=== PATIENT | female | born 1945 | race Caucasian/White ===

== ENCOUNTER 2020-06-17 13:01 | Inpatient (IN) | payer MEDICARE, BC ==
[~2020-06-17] VITALS: Ht 162.6 cm; Wt 63.0 kg
[2020-06-17] VITALS (9 sets, daily range): BP systolic 104–131; BP diastolic 46–67; BMI 23.9
[2020-06-17 13:36] LABS: ALBUMIN 3.8 g/dL (3.4-5.0); ANION GAP 26.5 mmol/L (8-16); BILIRUBIN - TOTAL 0.55 mg/dL (0.2-1.3); CALCIUM 9.6 mg/dL (8.5-10.1); CARBON DIOXIDE 15.1 mmol/L (21.0-32.0); CREATININE - SERUM 2.3 mg/dL (0.6-1.3); MAGNESIUM - SERUM 2.2 mg/dL (1.8-2.4); POTASSIUM - SERUM 4.6 mmol/L (3.5-5.1)
[2020-06-17 13:38] LABS: BASOPHILS 0.3 % (0-2); EOSINOPHILS 1.7 % (0-7); HEMATOCRIT 40.8 % (36.0-48.0); HEMOGLOBIN 13.2 g/dL (12-16); IMMATURE GRANULOCYTES 0.2 % (0-5); LYMPHOCYTE ABS# 1.84 10x3/uL (1.18-3.74); LYMPHOCYTES 19.7 % (15-50); MCH 30.7 pg (26.0-34.0); MCHC 32.4 g/dL (31.0-37.0); MCV 94.9 fL (80.0-100.0); MEAN PLATELET VOLUME 11.7 fL (7.4-10.4); MONOCYTES 3.9 % (2-11); NEUTROPHIL ABS# 6.91 10x3/uL (1.56-6.13); NEUTROPHILS 74.2 % (40-80); PLATELET COUNT 357 10x3/uL (130-400); RDW 13.1 % (11.5-14.5); WBC 9.3 10x3/uL (4.8-10.8)
--- NOTE | 2020-06-17 14:10 | NUR ---
RECEIVED PT INTO THIS NURSE'S CARE
--- NOTE | 2020-06-17 14:10 | NUR ---
BLOOD DRAWN AND SENT TO THE LAB
--- NOTE | 2020-06-17 16:40 | NUR ---
FSBS 221. INSULIN INFUSING AT 9.5 ML/H
--- NOTE | 2020-06-17 16:49 | NUR ---
INSULIN DRIP CHANGED PER INSULIN FLOW SHEET TO 4.83 UNIT/H OR 4.83 ML/H
[2020-06-17 17:28] LABS: BILIRUBIN NEGATIVE (NEGATIVE); KETONE SMALL mg/dL (NEGATIVE); NITRITE NEGATIVE (NEGATIVE); UROBILINOGEN NORMAL mg/dL (< 2)
[2020-06-17] MEDS ORDERED: ACETAMINOPHEN500 M1 PO (18:22)
[2020-06-17] MEDS ORDERED: BRILINTA90 MG PO (18:22)
[2020-06-17] MEDS ORDERED: LASIX40 MG PO (18:23)
[2020-06-17] MEDS ORDERED: HUMALOG 30100 UNITS/ SC ×3 (18:27→18:30)
[2020-06-17] MEDS ORDERED: ISOSORBIDE MONO30 M1 PO (18:30)
[2020-06-17] MEDS ORDERED: LANTUS INS100 UNITS/ SC (18:31)
[2020-06-17] MEDS ORDERED: COZAAR25 MG PO (18:32)
[2020-06-17] MEDS ORDERED: LISINOPRIL10 MG PO (18:32)
[2020-06-17] MEDS ORDERED: METOPROLOL TART50 MG PO (18:33)
[2020-06-17] MEDS ORDERED: OMEPRAZOLE40 MG PO (18:37)
[2020-06-17] MEDS ORDERED: ALDACTONE25 MG PO (18:38)
[2020-06-17] MEDS ORDERED: CRESTOR20 MG PO (18:38)
[2020-06-17] MEDS ORDERED: TOUJEO SOL300 UNIT/1 SC (18:39)
[2020-06-17] MEDS ORDERED: K-DUR20 MEQ PO (18:39)
[2020-06-17] MEDS ORDERED: SALON PAS MISC (18:41)
--- NOTE | 2020-06-17 19:22 | NUR ---
NS 100 ML/H INFUSING WITH 950 ML REMAINING TO BE INFUSED UPON TRANSFER TO ICU. HUMULIN INFUSING AT 4.83 UNIT/H ON TRANSFER TO ICU
[2020-06-17 20:26] LABS: CALCIUM 8.4 mg/dL (8.5-10.1); CREATININE - SERUM 1.8 mg/dL (0.6-1.3); MAGNESIUM - SERUM 1.9 mg/dL (1.8-2.4)
[2020-06-17 20:28] LABS: ANION GAP 18.7 mmol/L (8-16); POTASSIUM - SERUM 3.7 mmol/L (3.5-5.1)
[2020-06-18] VITALS (17 sets, daily range): BP systolic 94–136; BP diastolic 42–68; Ht 162.6 cm; Wt 63.0 kg
[2020-06-18 01:17] LABS: ANION GAP 16.5 mmol/L (8-16); CARBON DIOXIDE 21.3 mmol/L (21.0-32.0); CREATININE - SERUM 1.7 mg/dL (0.6-1.3); POTASSIUM - SERUM 3.8 mmol/L (3.5-5.1)
[2020-06-18 04:36] LABS: BASOPHILS 0.3 % (0-2); EOSINOPHILS 3.7 % (0-7); HEMATOCRIT 32.7 % (36.0-48.0); HEMOGLOBIN 10.8 g/dL (12-16); IMMATURE GRANULOCYTES 0.1 % (0-5); LYMPHOCYTE ABS# 2.99 10x3/uL (1.18-3.74); LYMPHOCYTES 42.4 % (15-50); MCH 30.2 pg (26.0-34.0); MEAN PLATELET VOLUME 10.7 fL (7.4-10.4); MONOCYTES 10.9 % (2-11); NEUTROPHIL ABS# 3.01 10x3/uL (1.56-6.13); NEUTROPHILS 42.6 % (40-80); RBC 3.58 10x6/uL (4.00-5.40); WBC 7.1 10x3/uL (4.8-10.8)
[2020-06-18 04:41] LABS: MCV 91.3 fL (80.0-100.0); PLATELET COUNT 261 10x3/uL (130-400)
[2020-06-18 05:15] LABS: ANION GAP 16.1 mmol/L (8-16); BILIRUBIN - TOTAL 0.26 mg/dL (0.2-1.3); CALCIUM 8.1 mg/dL (8.5-10.1); CARBON DIOXIDE 19.8 mmol/L (21.0-32.0); CREATININE - SERUM 1.6 mg/dL (0.6-1.3); MAGNESIUM - SERUM 1.8 mg/dL (1.8-2.4); PHOSPHOROUS 2.8 mg/dL (2.5-4.9); POTASSIUM - SERUM 3.9 mmol/L (3.5-5.1); PROTEIN - SERUM 6.1 g/dL (6.4-8.2)
[2020-06-18 05:20] LABS: ALBUMIN 2.7 g/dL (3.4-5.0)
--- NOTE | 2020-06-18 06:29 | NUR ---
Patient did well during the night. Labs pertaining to her DKA status have improved significantly. Rate is currently at 0.78 per protocol. Patient did get slightly confused on one occasion during the night and cannot tolerate external catheter. Patient has been successful with bedpan.
--- NOTE | 2020-06-18 06:34 | NUR ---
Updated YOVANNY Arreaga through out the night regarding labs.
[2020-06-18 09:33] LABS: MAGNESIUM - SERUM 1.7 mg/dL (1.8-2.4); THYROID STIMULATING HORMONE 0.59 uIU/mL (0.36-3.74)
[2020-06-18 10:05] LABS: ANION GAP 16.6 mmol/L (8-16); CALCIUM 8.1 mg/dL (8.5-10.1); CREATININE - SERUM 1.6 mg/dL (0.6-1.3); POTASSIUM - SERUM 3.6 mmol/L (3.5-5.1)
--- NOTE | 2020-06-18 10:14 | NUR ---
DR. HUFF ROUNDS AND WE DISCUSS GAP STILL SLIGHTLY ELEVATED. WANTS ME TO CALL WITH 1200 BMP AND WE WILL DISCUSS HOW KIRLIL S/Devendra.
--- NOTE | 2020-06-18 10:28 | NUR ---
DR. HUFF NOTIFIED MED REC INCOMPLETE. ORDERS VERBALS FOR MOST IMPORTANT MEDS.
[2020-06-18 12:54] LABS: ANION GAP 13.7 mmol/L (8-16); CALCIUM 8.6 mg/dL (8.5-10.1); CARBON DIOXIDE 22.6 mmol/L (21.0-32.0); CREATININE - SERUM 1.5 mg/dL (0.6-1.3); MAGNESIUM - SERUM 2.7 mg/dL (1.8-2.4); POTASSIUM - SERUM 3.3 mmol/L (3.5-5.1)
[2020-06-18 16:54] LABS: ANION GAP 15.6 mmol/L (8-16); CALCIUM 8.3 mg/dL (8.5-10.1); CARBON DIOXIDE 21.5 mmol/L (21.0-32.0); CREATININE - SERUM 1.5 mg/dL (0.6-1.3)
[2020-06-18 16:56] LABS: POTASSIUM - SERUM 4.1 mmol/L (3.5-5.1)
--- NOTE | 2020-06-18 17:53 | NUR ---
REPORT GIVEN TO DARÍO ANDRADE.
--- NOTE | 2020-06-18 18:05 | NUR ---
DARÍO VANEGAS, GIVEN REPORT.
[2020-06-18 20:40] LABS: ANION GAP 18.9 mmol/L (8-16); CALCIUM 8.6 mg/dL (8.5-10.1); CARBON DIOXIDE 17.7 mmol/L (21.0-32.0); CREATININE - SERUM 1.6 mg/dL (0.6-1.3); POTASSIUM - SERUM 4.6 mmol/L (3.5-5.1)
--- NOTE | 2020-06-18 22:00 | NUR ---
This nurse in to see pt and she has ripped IV out of Lt hand. Refuses to have replaced tonight. Charge nurse notified. Will attempt replacement in AM.
[2020-06-19] VITALS: BP 111/40
[2020-06-19 04:00] VITALS: BP 111/37
[2020-06-19 06:52] LABS: BASOPHILS 0.3 % (0-2); EOSINOPHILS 3.9 % (0-7); HEMATOCRIT 33.7 % (36.0-48.0); IMMATURE GRANULOCYTES 0.3 % (0-5); LYMPHOCYTE ABS# 2.28 10x3/uL (1.18-3.74); LYMPHOCYTES 34.1 % (15-50); MCH 30.6 pg (26.0-34.0); MCHC 32.6 g/dL (31.0-37.0); MEAN PLATELET VOLUME 11.3 fL (7.4-10.4); MONOCYTES 10.9 % (2-11); NEUTROPHIL ABS# 3.38 10x3/uL (1.56-6.13); NEUTROPHILS 50.5 % (40-80); PLATELET COUNT 259 10x3/uL (130-400); RDW 13.5 % (11.5-14.5); WBC 6.7 10x3/uL (4.8-10.8)
[2020-06-19 06:54] LABS: MCV 93.6 fL (80.0-100.0)
[2020-06-19 07:26] LABS: ALBUMIN 2.8 g/dL (3.4-5.0); ANION GAP 17.3 mmol/L (8-16); BILIRUBIN - TOTAL 0.23 mg/dL (0.2-1.3); CALCIUM 8.9 mg/dL (8.5-10.1); CARBON DIOXIDE 18.9 mmol/L (21.0-32.0); CREATININE - SERUM 1.2 mg/dL (0.6-1.3); MAGNESIUM - SERUM 2.3 mg/dL (1.8-2.4); PHOSPHOROUS 3.1 mg/dL (2.5-4.9); POTASSIUM - SERUM 4.2 mmol/L (3.5-5.1); PROTEIN - SERUM 6.1 g/dL (6.4-8.2)
--- NOTE | 2020-06-19 07:30 | NUR ---
PT CL IN REACH. NO NEEDS AT THIS TIME. AWAKE, ALERT, AND ORIENTED DURING BEDSIDE REPORT. STATES SHE IS A LITTLE HIGH STRUNG AND EMOTIONAL AT THE MOMENT BECAUSE THE IV MACHINE ALARMING OCCLUDED BEFORE HER ARRIVAL TO THIS FLOOR. I STATED I UNDERSTAND HER NEEDING SOME PEACE AND QUIET WITHOUT AN IV OVERNIGHT.
--- NOTE | 2020-06-19 07:39 | NUR ---
PT DID ALLOW THIS NURSE TO PLACE A NEW IV THIS AM TO LFA. 20G WITH SUCCESSFUL FIRST STICK.
[2020-06-19 08:37] VITALS: BP 117/52
--- NOTE | 2020-06-19 11:00 | NUR ---
CHANGED POSITION OF BEDSIDE TABLE SO IV POLE CAN BE BETWEEN BATHROOM AND BED FOR EASIER ACCESS TO THE BATHROOM. PT IS STEADY ON HER FEET. REQUESTED AND RECEIVED BLUE NON SKID SOCKS TO KEEP HER FEET WARM AND SHE CAME TO HOSPITAL WEARING SLIPPERS. CL IN REACH. NO FURTHER NEEDS AT THIS TIME. WCTM
--- NOTE | 2020-06-19 12:35 | NUR ---
Nutrition follow-up: Visited with pt during rounds. Pts question re: diabetic diet answered RDN provided pt with printed diet information. Pt needs outpatient diabetic diet education after discharge to continue reinforcement of information. RDN will continue to discuss diabetic diet with pt during hospital stay. Follow-up: 06/22/20
[2020-06-19 12:52] VITALS: BP 123/54
--- NOTE | 2020-06-19 15:31 | NUR ---
IN ROOM. AC TURNED OFF REQUESTED. PT USING BATHROOM. NO NEEDS AT THIS TIME. WCMINAL
[2020-06-19 17:31] VITALS: BP 127/51
--- NOTE | 2020-06-20 05:32 | NUR ---
Pt has been resting on and off in bed. Does not wear SCD's and has been c/o knee pain. Pt refused Tylenol and we did discuss alternative pain relieving factors. Pt was given a warm blanket that was effective for pain. Pt up and down in room per self but, when staff near will request to be "tucked in" and pampered a little. Pt behavior does indicate the need for a little more TLC and she did verbalize being scared. Therapeutic communication regarding same and pt tucked in.
[2020-06-20 05:43] LABS: BASOPHILS 0.5 % (0-2); EOSINOPHILS 3.2 % (0-7); HEMATOCRIT 31.1 % (36.0-48.0); HEMOGLOBIN 10.1 g/dL (12-16); IMMATURE GRANULOCYTES 0.2 % (0-5); LYMPHOCYTE ABS# 2.43 10x3/uL (1.18-3.74); LYMPHOCYTES 38.6 % (15-50); MCH 30.4 pg (26.0-34.0); MCHC 32.5 g/dL (31.0-37.0); MCV 93.7 fL (80.0-100.0); MEAN PLATELET VOLUME 10.9 fL (7.4-10.4); MONOCYTES 9.2 % (2-11); NEUTROPHIL ABS# 3.04 10x3/uL (1.56-6.13); NEUTROPHILS 48.3 % (40-80); PLATELET COUNT 230 10x3/uL (130-400); RBC 3.32 10x6/uL (4.00-5.40); RDW 13.8 % (11.5-14.5); WBC 6.3 10x3/uL (4.8-10.8)
[2020-06-20 06:01] LABS: ALBUMIN 2.6 g/dL (3.4-5.0); BILIRUBIN - TOTAL 0.27 mg/dL (0.2-1.3); CALCIUM 8.2 mg/dL (8.5-10.1); CREATININE - SERUM 1.1 mg/dL (0.6-1.3); PHOSPHOROUS 2.9 mg/dL (2.5-4.9); PROTEIN - SERUM 5.6 g/dL (6.4-8.2)
[2020-06-20 06:02] LABS: ANION GAP 15.5 mmol/L (8-16); POTASSIUM - SERUM 3.5 mmol/L (3.5-5.1)
--- NOTE | 2020-06-20 06:53 | NUR ---
Pt had reported BG of 60 this AM with labs. Given 80 ml of [place] juice, diabetic shorbread cookies, Peanut butter and grahm crackers. Asymptomatic for hypoglycemia.
[2020-06-20 08:20] VITALS: BP 130/60
[2020-06-20] MEDS ORDERED: LANTUS SOL100 UNIT/2 SC (11:48)
[2020-06-20 12:00] VITALS: BP 106/46
--- NOTE | 2020-06-20 13:15 | NUR ---
IV DISCONTINUED AND VERBALIZED UNDERSTANDING OF DISCHARGE INSTRUCTIONS. STABLE AT TIME OF DISCHARGE UNDER CARE OF .
--- NOTE | 2020-06-20 19:01 | MORECARE ---
CASE MANAGEMENT DISCHARGE SUMMARY PATIENT: NOÉ PINTO UNIT: [id number] ADM DATE: 06/17/20 AGE: 74 : 43 SEX: F ROOM/BED: D.2211 AUTHOR: JUDI CHILEL PHYSICIAN: REFERRING PHYSICIAN: JACKELINE DOWLING MD DATE OF SERVICE: 06/20/20 Case Management Discharge Planning Summary DCP REVIEW SUMMARY ANTICIPATED D/C DATE: 06/20/2020 EXPECTED LOS : 3 CASE STATUS: DCP Initiated INITIAL REVIEW: 06/17/2020 INITIAL REVIEWER: Bertin Freed FINAL DISCHARGE DISPOSITION: : FINAL REVIEWER: FINAL REVIEW DATE: DCP Focus Questions & Answers DCP Evaluation QUESTION: ANSWER Patient gives permission to discuss discharge plans with: (name, relationship and number) : spouse, Esau Pinto, Patient's ability to cope with chronic illness : d. No chronic illness Patient's current cognitive status: : *Oriented to person, place, situation, time and present Family / Caregiver's ability to cope with chronic illness: : a. Adequate (ability to meet patient's medical needs, ensures patient attends medical appts.) Patient and/or caregiver agree upon recommended discharge plan? : Yes Physical Status: : Independent with ADL's Family / Caregiver's ability to cope with chronic illness: : a. Adequate (ability to meet patient's medical needs, ensures patient attends medical appts.) Functional screen assessment: : Basic needs can adequately be met by self Does the patient have the ability to pay for or attain post discharge needs / services? : Yes Living Arrangements: : Home with Spouse/Significant Other Is there a likelihood that the patient will require additional services to return to the preadmission environment? : No Equipment needed for post hospitalization: : None Baseline cognitive status: : *Oriented to person, place, situation, time and present Patient with capacity for self-care or can be cared for in same environment as prior to hospitalization? : Yes Physical environment modification needed / anticipated for discharge: : No Medication Management: : Patient states can afford medications Medication Management: : Patient states can read and understand medication labels Pharmacy name(s): : [facility] in [place] Does Patient have transportation to get home and to follow-up medical appointments when discharged from the hospital? : Yes Would patient like to participate in any Care Coordination programs (if applicable): : Not applicable Does the patient have electricity at home? : Yes Does the patient have running water in their house? : Yes Equipment in use: : Shower Chair Mental health screen: : No mental health history DCP Re-evaluation QUESTION: ANSWER Would patient like to participate in any Care Coordination programs (if applicable): : Not applicable PATIENT: NOÉ PINTO ENCOUNTER: [id number] MEDICAL RECORD#: [id number] ADMISSION DATE: 06/17/2020 DISCHARGE DATE: 06/20/2020 ATTENDING MD: JACKELINE SPAIN : 1946- AGE: 74 MARITAL STATUS: M DC PLAN ID: [id number] FACILITY: [facility] PRINTED ON: 06/20/20 19:01 CT All edits/amendments must be made on the electronic document DICTATION DATE: 06/20/201900 ELECTRICAL CONTINUITY TESTER: LIZZETTE 06/20/201900 RPT#: [id number] DC DATE:06/20/20 STATUS: DIS IN [facility] [address] [place] [address] END OF REPORT
--- NOTE | 2020-06-20 19:12 | MORECARE ---
CASE MANAGEMENT DISCHARGE SUMMARY PATIENT: NOÉ PINTO UNIT: [id number] ADM DATE: 06/17/20 AGE: 74 : 43 SEX: F ROOM/BED: D.2211 AUTHOR: JUDI CHILEL PHYSICIAN: REFERRING PHYSICIAN: JACKELINE DOWLING MD DATE OF SERVICE: 06/20/20 Case Management Discharge Planning Summary COMMENTS ENTERED DATE: 06/20/20 19:01 CT COMMENT TYPE: Discharge Planning REVIEWER: Bertin Freed CM met with patient to complete DC plan and to evaluate needs. Patient lives independently with her spouse, Esau Pinto, . Patient stated that her home is safe and has electricity and running water. Patient stated that the home has 1 step to enter and she is able to manage the step without difficulty. Patient stated that she has no problems paying for medications and she fills her medications at [facility] in [place]. Patient stated that her primary care physician is Dr. Carroll. At discharge, the patient plans to return home and feels this is a safe discharge. CM discussed availability of home health, rehab services, and medical equipment. Patient declined SNF, IPR, and DME. Patient would like HHS services, with [facility]. JAIME signed and placed in chart. CM spoke with Joyce with intake at [facility]. The patient is currently enrolled in outpatient cardiac rehab 3 times a week and does not qualify as homebound for home health services. Patient stated she has a shower chair. Patient voiced no other needs at this time and is satisfied with DC plan. Transportation provider at discharge will be with her , Esau. DC IMM delivered, explained, signed by the patient, and placed in chart. Signed form also left with the patient. CM will continue to follow and will assist as needed with dc plans/needs. DCP REVIEW SUMMARY ANTICIPATED D/C DATE: 06/20/2020 EXPECTED LOS : 3 CASE STATUS: DCP Initiated INITIAL REVIEW: 06/17/2020 INITIAL REVIEWER: Bertin Freed FINAL DISCHARGE DISPOSITION: : FINAL REVIEWER: FINAL REVIEW DATE: DCP Focus Questions & Answers DCP Evaluation QUESTION: ANSWER Patient gives permission to discuss discharge plans with: (name, relationship and number) : spouse, Esau Pinto, Patient's ability to cope with chronic illness : d. No chronic illness Patient's current cognitive status: : *Oriented to person, place, situation, time and present Family / Caregiver's ability to cope with chronic illness: : a. Adequate (ability to meet patient's medical needs, ensures patient attends medical appts.) Patient and/or caregiver agree upon recommended discharge plan? : Yes Physical Status: : Independent with ADL's Family / Caregiver's ability to cope with chronic illness: : a. Adequate (ability to meet patient's medical needs, ensures patient attends medical appts.) Functional screen assessment: : Basic needs can adequately be met by self Does the patient have the ability to pay for or attain post discharge needs / services? : Yes Living Arrangements: : Home with Spouse/Significant Other Is there a likelihood that the patient will require additional services to return to the preadmission environment? : No Equipment needed for post hospitalization: : None Baseline cognitive status: : *Oriented to person, place, situation, time and present Patient with capacity for self-care or can be cared for in same environment as prior to hospitalization? : Yes Physical environment modification needed / anticipated for discharge: : No Medication Management: : Patient states can afford medications Medication Management: : Patient states can read and understand medication labels Pharmacy name(s): : [facility] in [place] Does Patient have transportation to get home and to follow-up medical appointments when discharged from the hospital? : Yes Would patient like to participate in any Care Coordination programs (if applicable): : Not applicable Does the patient have electricity at home? : Yes Does the patient have running water in their house? : Yes Equipment in use: : Shower Chair Mental health screen: : No mental health history DCP Re-evaluation QUESTION: ANSWER Would patient like to participate in any Care Coordination programs (if applicable): : Not applicable PATIENT: NOÉ PINTO ENCOUNTER: [id number] MEDICAL RECORD#: [id number] ADMISSION DATE: 06/17/2020 DISCHARGE DATE: 06/20/2020 ATTENDING MD: JACKELINE SPAIN : 1946-Dez AGE: 74 MARITAL STATUS: M DC PLAN ID: [id number] FACILITY: [facility] PRINTED ON: 06/20/20 19:11 CT All edits/amendments must be made on the electronic document DICTATION DATE: 06/20/201910 MANIFOLD OPERATOR: DM 06/20/201910 RPT#: [id number] DC DATE:06/20/20 STATUS: DIS IN [facility] [address] [place] [address] END OF REPORT
--- NOTE | 2020-06-22 11:27 | MORECARE ---
CASE MANAGEMENT DISCHARGE SUMMARY PATIENT: NOÉ PINTO UNIT: [id number] ADM DATE: 06/17/20 AGE: 74 : 43 SEX: F ROOM/BED: D.2211 AUTHOR: JUDI CHILEL PHYSICIAN: REFERRING PHYSICIAN: JACKELINE DOWLING MD DATE OF SERVICE: 06/22/20 Case Management Discharge Planning Summary COMMENTS ENTERED DATE: 06/20/20 19:01 CT COMMENT TYPE: Discharge Planning REVIEWER: Bertin Freed CM met with patient to complete DC plan and to evaluate needs. Patient lives independently with her spouse, Esau Pinto, . Patient stated that her home is safe and has electricity and running water. Patient stated that the home has 1 step to enter and she is able to manage the step without difficulty. Patient stated that she has no problems paying for medications and she fills her medications at [facility] in [place]. Patient stated that her primary care physician is Dr. Carroll. At discharge, the patient plans to return home and feels this is a safe discharge. CM discussed availability of home health, rehab services, and medical equipment. Patient declined SNF, IPR, and DME. Patient would like HHS services, with [facility]. JAIME signed and placed in chart. CM spoke with Joyce with intake at [facility]. The patient is currently enrolled in outpatient cardiac rehab 3 times a week and does not qualify as homebound for home health services. Patient stated she has a shower chair. Patient voiced no other needs at this time and is satisfied with DC plan. Transportation provider at discharge will be with her , Esau. DC IMM delivered, explained, signed by the patient, and placed in chart. Signed form also left with the patient. CM will continue to follow and will assist as needed with dc plans/needs. DCP REVIEW SUMMARY ANTICIPATED D/C DATE: 06/20/2020 EXPECTED LOS : 3 CASE STATUS: DCP Initiated INITIAL REVIEW: 06/17/2020 INITIAL REVIEWER: Bertin Freed FINAL DISCHARGE DISPOSITION: : FINAL REVIEWER: FINAL REVIEW DATE: DCP Focus Questions & Answers DCP Evaluation QUESTION: ANSWER Patient and/or caregiver agree upon recommended discharge plan? : Yes Patient's current cognitive status: : *Oriented to person, place, situation, time and present Patient's ability to cope with chronic illness : d. No chronic illness Patient gives permission to discuss discharge plans with: (name, relationship and number) : spouse, Esau Pinto, Family / Caregiver's ability to cope with chronic illness: : a. Adequate (ability to meet patient's medical needs, ensures patient attends medical appts.) Does the patient have the ability to pay for or attain post discharge needs / services? : Yes Functional screen assessment: : Basic needs can adequately be met by self Family / Caregiver's ability to cope with chronic illness: : a. Adequate (ability to meet patient's medical needs, ensures patient attends medical appts.) Physical Status: : Independent with ADL's Equipment needed for post hospitalization: : None Is there a likelihood that the patient will require additional services to return to the preadmission environment? : No Living Arrangements: : Home with Spouse/Significant Other Patient with capacity for self-care or can be cared for in same environment as prior to hospitalization? : Yes Baseline cognitive status: : *Oriented to person, place, situation, time and present Physical environment modification needed / anticipated for discharge: : No Medication Management: : Patient states can afford medications Medication Management: : Patient states can read and understand medication labels Pharmacy name(s): : [facility] in [place] Does Patient have transportation to get home and to follow-up medical appointments when discharged from the hospital? : Yes Would patient like to participate in any Care Coordination programs (if applicable): : Not applicable Does the patient have electricity at home? : Yes Does the patient have running water in their house? : Yes Equipment in use: : Shower Chair Mental health screen: : No mental health history DCP Re-evaluation QUESTION: ANSWER Would patient like to participate in any Care Coordination programs (if applicable): : Not applicable PATIENT: NOÉ PINTO ENCOUNTER: [id number] MEDICAL RECORD#: [id number] ADMISSION DATE: 06/17/2020 DISCHARGE DATE: 06/20/2020 ATTENDING MD: JACKELINE SPAIN : 1946-Dez AGE: 74 MARITAL STATUS: M DC PLAN ID: [id number] FACILITY: [facility] PRINTED ON: 06/22/20 11:27 CT All edits/amendments must be made on the electronic document DICTATION DATE: 06/22/201126 AUTOMOTIVE WORKER: DM 06/22/20 112 RPT#: [id number] DC DATE:06/20/20 STATUS: DIS IN [facility] [address] [place] [id number] END OF REPORT
== END 2020-06-20 13:15 | disposition home or self-care (01) | DRG 638 ==
LOC: D.ER 13:01 → D.ICU 15:17 → D.MS 15:17
PROVIDERS: Family Medicine; ADMIT Emergency Medicine; ATTEND Emergency Medicine
DX: E10.10 Type 1 diabetes mellitus with ketoacidosis without coma (principal); N17.9 Acute kidney failure, unspecified; E87.1 Hypo-osmolality and hyponatremia; Z79.4 Long term (current) use of insulin; I25.10 Atherosclerotic heart disease of native coronary artery without angina pectoris